=== PATIENT | female | born 1945 | race Caucasian/White ===

== ENCOUNTER → 2017-02-05 | Outpatient (CLI) | payer OTHER ==
[~2017-02-05] MED LIST: ASTELIN137 MCG INH; AVALIDE 300-251 TAB PO; AVAPRO300 M1 PO; BENICAR HCT 40-1 TA1 PO; BYSTOLIC10 MG PO; CELEBREX PO; CENTRUM SILVER PO; CENTRUM SILVER1 EAC3 PO; CO Q10100 MG PO; COUMADIN PO; COUMADIN2.5 MG PO; COUMADIN5 MG PO; COZAAR PO; CYMBALTA PO; CYMBALTA30 MG PO; DIOVAN HCT 160-1 TAB; EDARBYCLOR 40-1 EAC1 PO; EFFEXOR XR; FISH OIL 1,2001 CAP PO; HYDROCHLOROTHIA25 MG PO; HYDROCODON-ACE1 EAC7 PO; LIPITOR PO; LIVALO2 MG PO; LORTAB 7.5-5001 TAB; LOSARTAN POTAS100 MG PO; LOVASTATIN20 M1 PO; METAXALONE800 MG PO; METOPROLOL SUCC50 MG PO; MONTELUKAST SOD10 MG PO; MULTI-DAY VITAM1 TAB PO; NORVASC; NORVASC PO; OMEGA-3 KRILL1 EACH PO; OXYCODON HCL-AP1 TA2 PO; PANTOPRAZOLE SO40 MG PO; SKELAXIN; TRAMADOL HCL50 M2 PO; TYLENOL PM; VITAMIN D35000 UNI1 PO; XARELTO20 MG PO; [UNRECOGNIZED DRUG - OTHER] PO
--- NOTE | ~2017-02-05 | US77 ---
[facility] A Service of [facility] RADIOLOGY TEXT RESULTS PATIENT: YE MARX LOCATION: [facility] : 45 UNIT #: [id number] AGE: [address]: Maynor Flowers MD SEX: F ORDER DR: [id number] [facility] [address]. [place], [place] [address] [id number] O MR#: [id number] Acc #: [id number] NAME: YE MARX : 1945 SEX: F STUDY DATE/TIME: 02/05/2017 14:31 UNIT: [facility] ROOM: STUDY DESCRIPTION: US Kidney Bilateral Complete Attending Physician: Maynor Flowers M.D. Ordering Physician: Maynor Flowers M.D. Primary Care Physician: Maynor Flowers M.D. MEDICAL IMAGING REPORT This report is preliminary unless electronic signature is present EXAM Renal ultrasound bilateral complete 02/05/2017. HISTORY Acute renal insufficiency, abnormal renal function tests. Elevated BUN of 25, elevated creatinine 1.2. Abnormally low GFR 47.3 on 01/27/2017. FINDINGS The right kidney measured 8.6 cm while the left kidney measured 9.8 cm in longitudinal dimensions. There is no evidence of hydronephrosis or nephrolithiasis. No cystic or solid mass lesions were seen on either kidney. There is normal renal cortical echogenicity. Images of the bladder are normal. IMPRESSION 1. Negative renal ultrasound. 2. Images of the bladder are normal. Dictated by... Roge Diggs M.D. THIS IS AN ELECTRONICALLY VERIFIED REPORT Roge Diggs M.D. at 02/06/2017 3:48 PM KRT/gz TD: 02/06/2017 13:46 JOB #: [id number] MEDICAL IMAGING REPORT Page 1 of 1 COPY
== END | disposition home or self-care (01) ==
LOC: CGUS 13:48
DX: N28.9 Disorder of kidney and ureter, unspecified (principal)
CPT/HCPCS: 76770